=== PATIENT | female | born 1990 ===

== ENCOUNTER 2020-11-16 20:42 | Emergency (ER) | payer OTHER ==
[~2020-11-16] VITALS: Ht 160 cm; Wt 76.8 kg
[2020-11-16 20:57] VITALS: Ht 160 cm; Wt 76.8 kg
[2020-11-16 21:35] LABS: BASOPHILS 0.4 % (0-2); EOSINOPHILS 1.2 % (0-7); HEMATOCRIT 37.6 % (36.0-48.0); HEMOGLOBIN 12.7 g/dL (12-16); IMMATURE GRANULOCYTES 0.1 % (0-5); LYMPHOCYTES 41.2 % (15-50); MCH 29.1 pg (26.0-34.0); MCHC 33.8 g/dL (31.0-37.0); MCV 86.2 fL (80.0-100.0); MONOCYTES 5.7 % (2-11); NEUTROPHIL ABS# 3.49 10x3/uL (1.56-6.13); NEUTROPHILS 51.4 % (40-80); PLATELET COUNT 222 10x3/uL (130-400); RBC 4.36 10x6/uL (4.00-5.40); RDW 13.1 % (11.5-14.5); WBC 6.8 10x3/uL (4.8-10.8)
[2020-11-16 21:45] LABS: CALC OSMOLALITY 283 mosm/kg (275-300); CALCIUM 8.9 mg/dL (8.5-10.1); CARBON DIOXIDE 28.4 mmol/L (21.0-32.0); CHLORIDE - SERUM 105 mmol/L (98-107); CREATININE - SERUM 0.7 mg/dL (0.6-1.3); GLUCOSE 88 mg/dL (74-106); POTASSIUM - SERUM 3.5 mmol/L (3.5-5.1); SODIUM 142 mmol/L (136-145); UREA NITROGEN 19 mg/dL (7-18); eGFR NON AFRICAN AMERICAN > 90 mL/min (90-120)
[2020-11-16 21:46] LABS: HCG SERUM NEGATIVE (NEGATIVE)
[2020-11-16 21:47] LABS: BACTERIA MODERATE HPF (NONE SEEN); BILIRUBIN NEGATIVE (NEGATIVE); KETONE SMALL mg/dL (NEGATIVE); NITRITE NEGATIVE (NEGATIVE); SQUAMOUS EPITHELIAL 0-5 HPF (0-4); UROBILINOGEN NORMAL mg/dL (< 2)
[2020-11-16 21:59] LABS: ALBUMIN 4.1 g/dL (3.4-5.0); ALKALINE PHOSPHATASE 84 U/L (30-120); ALT (SGPT) 54 U/L (10-68); BILIRUBIN - TOTAL 0.39 mg/dL (0.2-1.3); CREATINE KINASE 98 UL (21-215); MAGNESIUM - SERUM 1.9 mg/dL (1.8-2.4); PROTEIN - SERUM 7.8 g/dL (6.4-8.2); THYROID STIMULATING HORMONE 1.08 uIU/mL (0.36-3.74); TROPONIN-I < 0.017 ng/mL (0.000-0.060)
[2020-11-16 22:14] VITALS: BP 117/77
== END 2020-11-16 22:37 | disposition home or self-care (01) ==
LOC: D.ER 20:42
PROVIDERS: Family Medicine
DX: R07.9 Chest pain, unspecified (principal); I10 Essential (primary) hypertension; T50.905A Adverse effect of unspecified drugs, medicaments and biological substances, initial encounter